=== PATIENT | female | born 1980 | race Caucasian/White ===

== ENCOUNTER 2018-04-01 15:01 | Emergency (ER) | payer OTHER ==
[2018-04-01 15:48] LABS: Absolute Monocytes 0.5 K/uL (0.1-1.3); Absolute Neutrophil 4.8 K/uL (1.8-8.0); Basophils % 0.4 % (0-1.3); Eosinophils % 1.2 % (0-4.4); Hematocrit 39.4 % (36.0-45.0); Lymphocytes % 27.4 % (15.3-44.8); MCH 30.3 pg (27.0-35.0); MCV 91.6 fL (80-100); MPV 7.9 fL (7.6-11.3); Monocytes % 6.4 % (3.3-12.3)
[2018-04-01] MEDS ORDERED: KETOROLAC 30 MG/ML INJ ONE (15:49)
[2018-04-01] MEDS ORDERED: NA CHLORIDE 0.9% 1,000 ML ONE (15:49)
[2018-04-01 16:02] LABS: C-Reactive Protein 9.2 mg/L (<3.00); Potassium 3.6 mmol/L (3.5-5.1)
[2018-04-01] MEDS ORDERED: CYCLOBENZAPRINE 10 MG TAB ONE (16:26)
[2018-04-01 16:27] LABS: Urine Blood NEGATIVE (NEG); Urine Glucose NEGATIVE (NEG); Urine Protein NEGATIVE (NEG); Urine Specific Gravity >1.030 (1.005-1.030)
--- NOTE | 2018-04-01 17:03 | ER ---
Nurse's Notes [facility] Name: Gay Andre Age: 37 yrs Sex: Female : 1980 Arrival Date: 04/01/2018 Time: 15:04 Bed 20 Private MD: Diagnosis: Acute Back Pain;Headache Presentation: 04/01 15:06 Presenting complaint: Patient states: "Headaches all day, ibuprofen and Tylenol don't aj1 help and every time I take a step my spine is hurting me." Reports that this started at 0700 this am. Denies injury. Denies hitting head. Denies dizziness, weakness. Transition of care: patient was not received from another setting of care. Onset of symptoms was April 01, 2018 at 07:00. Risk Assessment: Do you want to hurt yourself or someone else? Patient reports no desire to harm self or others. Initial Sepsis Screen: Does the patient meet any 2 criteria? No. Patient's initial sepsis screen is negative. Does the patient have a suspected source of infection? No. Patient's initial sepsis screen is negative. Care prior to arrival: None. 15:06 Method Of Arrival: Ambulatory aj1 15:06 Acuity: ES 4 aj1 Triage Assessment: 15:09 General: Appears in no apparent distress. comfortable, Behavior is calm, cooperative, aj1 appropriate for age. Pain: Complains of pain in right voodoo, left voodoo and back Pain currently is 8 out of 10 on a pain scale. Neuro: Level of Consciousness is awake, alert, obeys commands. Cardiovascular: Patient's skin is warm and dry. Respiratory: Airway is patent Respiratory effort is even, unlabored, Respiratory pattern is regular, symmetrical. Musculoskeletal: Range of motion: intact in all extremities. ADMINISTRATIVE LIAISON: 15:09 LMP 03/30/2018 aj1 Historical: - Allergies: 15:09 No Known Allergies; aj1 - Home Meds: 15:09 None [Active]; aj1 - PMHx: 15:09 None; aj1 - PSHx: 15:09 Cholecystectomy; Tonsillectomy; aj1 - Immunization history:: Flu vaccine is up to date. - Social history:: Smoking status: Patient/guardian denies using tobacco. - Ebola Screening: : Patient denies travel to an Ebola-affected area in the 21 days before illness onset. Screenin:53 Abuse screen: Denies threats or abuse. Denies injuries from another. Nutritional rv screening: No deficits noted. Tuberculosis screening: No symptoms or risk factors identified. Fall Risk None identified. Assessment: 15:52 General: Appears in no apparent distress. comfortable, Behavior is calm, cooperative. rv Pain: Complains of pain in HEAD AND BACK Pain currently is 8 out of 10 on a pain scale. Neuro: Level of Consciousness is awake, alert, obeys commands, Oriented to person, place, time, situation. Cardiovascular: Capillary refill < 3 seconds. Respiratory: Airway is patent. GI: No signs and/or symptoms were reported involving the gastrointestinal system. : No signs and/or symptoms were reported regarding the genitourinary system. EENT: No signs and/or symptoms were reported regarding the EENT system. Derm: Skin is intact. 16:55 Reassessment: Patient appears in no apparent distress at this time. Patient and/or rv family updated on plan of care and expected duration. Pain level reassessed. Patient is alert, oriented x 3, equal unlabored respirations, skin warm/dry/pink. Vital Signs: 15:09 BP 131 / 85; Pulse 89; Resp 18; Temp 97.0(TE); Pulse Ox 100% on R/A; Weight 104.33 kg aj (R); Height 5 ft. 7 in. (170.18 cm) (R); Pain 8/10; 16:55 BP 108 / 71; Pulse 84; Pulse Ox 99% on R/A; rv 17:11 BP 122 / 60; Pulse 82; Pulse Ox 100% on R/A; rv 15:09 Body Mass Index 36.02 (104.33 kg, 170.18 cm) aj ED Course: 15:04 Patient arrived in ED. as 15:09 Triage completed. aj1 15:09 Arm band placed on Patient placed in an exam room. aj1 15:14 Young Hess PA is PHCP. cp 15:14 Juan Luis Hull MD is Attending Physician. cp 15:41 Initial lab(s) drawn, by me, sent to lab. Inserted saline lock: 20 gauge in right em1 antecubital area, using aseptic technique. Blood collected. 15:53 Patient has correct armband on for positive identification. Bed in low position. Call rv light in reach. Side rails up X 1. Adult w/ patient. Pulse ox on. NIBP on. 17:12 No provider procedures requiring assistance completed. IV discontinued, bleeding rv controlled, No redness/swelling at site. Pressure dressing applied. Administered Medications: 15:52 Drug: TORadol 30 mg Route: IVP; Site: right antecubital; rv 16:56 Follow up: Response: No adverse reaction rv 15:52 Drug: NS 0.9% 1000 ml Route: IV; Rate: 1 bolus; Site: right antecubital; rv 16:56 Follow up: IV Status: Completed infusion rv 16:20 Drug: Flexeril 10 mg Route: PO; rv 16:55 Follow up: Response: No adverse reaction rv Outcome: 17:03 Discharge ordered by . cp 17:12 Discharged to home ambulatory. rv 17:12 Condition: good 17:12 Discharge instructions given to patient, Instructed on discharge instructions, follow up and referral plans. medication usage, Demonstrated understanding of instructions, follow-up care, medications, Prescriptions given X 2. 17:15 Patient left the ED. rv Signatures: Nicol Mathis, RN RN [email or web address] Rocío Pope Eric em1 Young Hess, JENNIFER PA Sonny Santana, RN RN rv
--- NOTE | 2018-04-01 17:03 | EDPHYS ---
Physician Documentation [facility] Name: Gay Andre Age: 37 yrs Sex: Female : 1980 Arrival Date: 04/01/2018 Time: 15:04 Bed 20 Private MD: ED Physician Juan Luis Hull HPI: 04/01 15:24 This 37 yrs old Female presents to ER via Ambulatory with complaints of Back cp Pain, Headache. 15:25 The patient presents with pain that is acute, with no known mechanism of injury. The cp symptoms are located in the generalized. Onset: The symptoms/episode began/occurred this morning. Associated signs and symptoms: Pertinent positives: headache, Pertinent negatives: abdominal pain, chest pain, fever, incontinence, numbness, vomiting, weakness. Modifying factors: the patient symptoms are aggravated by walking. 15:25 Severity of symptoms: in the emergency department the symptoms are unchanged, despite cp home interventions. IN[employer]: 15:09 LMP 03/30/2018 aj1 Historical: - Allergies: 15:09 No Known Allergies; aj1 - Home Meds: 15:09 None [Active]; aj1 - PMHx: 15:09 None; aj1 - PSHx: 15:09 Cholecystectomy; Tonsillectomy; aj1 - Immunization history:: Flu vaccine is up to date. - Social history:: Smoking status: Patient/guardian denies using tobacco. - Ebola Screening: : Patient denies travel to an Ebola-affected area in the 21 days before illness onset. ROS: 15:30 Constitutional: Negative for body aches, chills, fever, poor PO intake. cp 15:30 Eyes: Negative for injury, pain, redness, and discharge. cp 15:30 ENT: Negative for drainage from ear(s), ear pain, sore throat, difficulty swallowing, difficulty handling secretions. 15:30 Cardiovascular: Negative for chest pain, edema, palpitations. 15:30 Respiratory: Negative for cough, shortness of breath, wheezing. 15:30 Abdomen/GI: Negative for abdominal pain, nausea, vomiting, and diarrhea, black/tarry stool, rectal bleeding. 15:30 Back: Positive for pain with walking, Negative for injury or acute deformity, decreased range of motion. 15:30 : Negative for urinary symptoms. 15:30 Skin: Negative for cellulitis, rash. 15:30 Neuro: Positive for headache, Negative for altered mental status, dizziness, syncope, near syncope, weakness. 15:30 All other systems are negative. Exam: 15:35 Constitutional: The patient appears in no acute distress, alert, awake, non-toxic, well cp developed, well nourished. 15:35 Head/Face: Normocephalic, atraumatic. Eyes: Pupils equal round and reactive to light, cp extra-ocular motions intact. Lids and lashes normal. Conjunctiva and sclera are non-icteric and not injected. Cornea within normal limits. Periorbital areas with no swelling, redness, or edema. ENT: Nares patent. No nasal discharge, no septal abnormalities noted. Tympanic membranes are normal and external auditory canals are clear. Oropharynx with no redness, swelling, or masses, exudates, or evidence of obstruction, uvula midline. Mucous membranes moist. 15:35 Neck: ROM/movement: is normal, is supple, no range of motions limitations, no meningismus, no nuchal rigidity, negative Brudzinski's sign, Lymph nodes: no appreciated lymphadenopathy. 15:35 Chest/axilla: Inspection: normal, Palpation: is normal, no crepitus, no tenderness. 15:35 Cardiovascular: Rate: normal, Rhythm: regular, Edema: is not appreciated, JVD: is not appreciated. 15:35 Respiratory: the patient does not display signs of respiratory distress, Respirations: normal, no use of accessory muscles, no retractions, no splinting, no tachypnea, Breath sounds: are clear throughout, no decreased breath sounds, no stridor, no wheezing. 15:35 Abdomen/GI: Inspection: abdomen appears normal, Bowel sounds: active, all quadrants, Palpation: abdomen is soft and non-tender, in all quadrants, rebound tenderness, is not appreciated, involuntary guarding, is not appreciated. 15:35 Back: pain, that is mild, of the diffusely, ROM is normal, Straight leg raises: of both lower extremities does not illicit pain. 15:35 Skin: cellulitis, is not appreciated, no rash present. 15:35 Neuro: Orientation: to person, place \T\ time. Mentation: lucid, able to follow commands, Cerebellar function: is grossly normal, Motor: moves all fours, strength is normal, Sensation: is normal, Gait: is steady. Vital Signs: 15:09 BP 131 / 85; Pulse 89; Resp 18; Temp 97.0(TE); Pulse Ox 100% on R/A; Weight 104.33 kg aj1 (R); Height 5 ft. 7 in. (170.18 cm) (R); Pain 8/10; 16:55 BP 108 / 71; Pulse 84; Pulse Ox 99% on R/A; rv 17:11 BP 122 / 60; Pulse 82; Pulse Ox 100% on R/A; rv 15:09 Body Mass Index 36.02 (104.33 kg, 170.18 cm) aj1 MDM: 15:17 Patient medically screened. 17:02 Data reviewed: vital signs, nurses notes, lab test result(s), and as a result, I will cp discharge patient. 17:02 Counseling: I had a detailed discussion with the patient and/or guardian regarding: the cp historical points, exam findings, and any diagnostic results supporting the discharge/admit diagnosis, lab results, the need for outpatient follow up, a family practitioner, to return to the emergency department if symptoms worsen or persist or if there are any questions or concerns that arise at home. Response to treatment: the patient's symptoms have mildly improved after treatment, and as a result, I will discharge patient. 04/01 15:23 Order name: CBC with Diff; Complete Time: 16:15 04/01 16:03 Interpretation: Reviewed. 04/01 15: Order name: BMP; Complete Time: 16:03 04/01 16:03 Interpretation: Normal except: GFR 71. 04/01 15:23 Order name: ESR; Complete Time: 16:15 04/01 15:23 Order name: CRP; Complete Time: 16:03 04/01 16:03 Interpretation: Abnormal: C-REACTIVE PROT 9.20. 04/01 15:26 Order name: Urine Dipstick--Ancillary (enter results) [facility] 04/01 15: Order name: Urine --Ancillary (enter results) [facility] 04/01 15:18 Order name: Urine Dipstick-Ancillary (obtain specimen); Complete Time: 15:23 04/01 15:18 Order name: Urine Test (obtain specimen); Complete Time: 15:22 10/25 15:25 Order name: IV; Complete Time: 15:50 cp Administered Medications: 15:52 Drug: TORadol 30 mg Route: IVP; Site: right antecubital; rv 16:56 Follow up: Response: No adverse reaction rv 15:52 Drug: NS 0.9% 1000 ml Route: IV; Rate: 1 bolus; Site: right antecubital; rv 16:56 Follow up: IV Status: Completed infusion rv 16:20 Drug: Flexeril 10 mg Route: PO; rv 16:55 Follow up: Response: No adverse reaction rv Disposition: 17:59 Co-signature as Attending Physician, Juan Luis Hull MD. rn Disposition: 04/01/18 17:03 Discharged to Home. Impression: Acute Back Pain, Headache. - Condition is Stable. - Discharge Instructions: Back Pain, Adult, General Headache Without Cause, Back Exercises. - Prescriptions for Cyclobenzaprine 10 mg Oral Tablet - take 1 tablet by ORAL route every 8 hours As needed; 20 tablet. Medrol (Vamsi) 4 mg Oral Tablets, Dose Pack - take 1 tablet by ORAL route as directed - follow package instructions; 1 packet. - Medication Reconciliation Form, Thank You Letter, Antibiotic Education, Prescription Opioid Use form. - Follow up: Private Physician; When: 1 - 2 days; Reason: Recheck today's complaints. - Problem is new. - Symptoms have improved. Signatures: Dispatcher [employer] Nicol Shah RN RN aj1 Juan Luis Hull MD MD rn Young Hess PA PA cp Sonny Phelps RN RN rv Corrections: (The following items were deleted from the chart) 17:15 17:03 04/01/2018 17:03 Discharged to Home. Impression: Acute Back Pain; Headache. rv Condition is Stable. Forms are Medication Reconciliation Form, Thank You Letter, Antibiotic Education, Prescription Opioid Use. Follow up: Private Physician; When: 1 - 2 days; Reason: Recheck today's complaints. Problem is new. Symptoms have improved. cp
== END 2018-04-01 17:15 | disposition home or self-care (01) ==
LOC: ER 15:01
DX: R51 Headache (principal)
CPT/HCPCS: 36415; 80048; 81003; 81025; 85025; 85652; 86140; 96361; 96374; 99284; J7030

== ENCOUNTER 2022-06-04 20:23 | Emergency (ER) | payer BC ==
--- NOTE | 2022-06-04 20:52 | ER ---
Nurse's Notes [facility] Name: Gay Andre Age: 41 yrs Sex: Female : 1980 Arrival Date: 06/04/2022 Time: 20:25 Bed Waiting Private MD: Diagnosis: ED Course: 06/04 20:25 Patient arrived in ED. [id number] 20:51 Patient's name was called from ER lobby. No response. Unable to locate patient. Will bb disposition as left without being seen by a provider. Administered Medications: No medications were administered Outcome: 20:51 Patient left the ED. bb Signatures: Iram Zamora RN RN bb Thom Gay [id number]
== END 2022-06-04 20:51 | disposition left against medical advice (07) ==
LOC: ER 20:23
DX: Z02.9 Encounter for administrative examinations, unspecified (principal)